=== PATIENT | male | born 1950 | race Caucasian/White ===

== ENCOUNTER 2023-11-30 10:12 | Day surgery (SDC) | payer OTHER ==
[~2023-11-30] VITALS: Ht 177.8 cm; Wt 90.6 kg
[~2023-11-30 10:12] MED LIST: Lactated Ringer's 1,000 ML IV ONE
[2023-11-30] MEDS ORDERED: Lactated Ringer's 1,000 ML IV ONE (10:45)
[2023-11-30] MEDS ORDERED: EPINEPhrine HCl 1 MG/ML 1ML Amp ONE (11:29)
[2023-11-30] MEDS ORDERED: Ropivacaine 0.5% HCl/Pf 5 MG/ML 20ML VIAL ONE (11:29)
[2023-11-30] MEDS ORDERED: propofoL 20 ML IV ONE ×2 (13:02→13:08)
[2023-11-30] MEDS ORDERED: FentaNYL Citrate 50 MCG/ML 2 ML Injection ONE (13:03)
[2023-11-30] MEDS ORDERED: Ondansetron HCl 2 MG / ML 2ML Vial ONE (13:21)
[2023-11-30] MEDS ORDERED: Dexamethasone Sod Phos 10 MG/ML 1ML VIAL ONE (13:21)
--- NOTE | 2023-11-30 14:05 | NUR ---
11/30/23 1405 Vielka Bueno ROPIVICAINE 0.5% 1:200,000
[2023-11-30 15:04] VITALS: BP 136/79
== END 2023-11-30 15:10 | disposition home or self-care (01) ==
LOC: ORSCSDS 10:12
PROVIDERS: Surgery
PROC: 06BY0ZC Excision of Hemorrhoidal Plexus, Open Approach (ICD-10-PCS; principal; 2023-11-30 11:45)
DX: K64.4 Residual hemorrhoidal skin tags (principal); G47.33 Obstructive sleep apnea (adult) (pediatric); Z85.46 Personal history of malignant neoplasm of prostate
CPT/HCPCS: 88304; J0171; J1100; J2405; J2704; J2795; J3010; J7120